=== PATIENT | female | born 1985 | race Caucasian/White ===

== ENCOUNTER 2021-12-07 13:02 | Outpatient (CLI) | payer BC, SELFPAY ==
[2021-12-07 14:20] LABS: Hemoglobin A1C 4.9 % (<5.7)
== END 2021-12-07 13:03 | disposition home or self-care (01) ==
PROVIDERS: PCP Family Medicine; Visit Provider Nurse Practitioner Family
DX: R63.1 Polydipsia (principal)
CPT/HCPCS: 36415; 83036

== ENCOUNTER 2023-08-27 16:42 | Outpatient (CLI) | payer BC, SELFPAY ==
--- NOTE | ~2023-08-27 | XR_ITS ---
XR_[id number] 08/27/2023 17:01 Indication: Neck pain Procedure: 3 views cervical spine Comparison: Cervical spine dated 05/13/2017 Findings: Vertebral body and disc heights are preserved. No fracture, subluxation or dislocation. No prevertebral soft tissue abnormality. Spinous processes are normal. No evidence for perched facet. Jasmina ng apices are normal. Odontoid process within normal limits. Impression: 1: No significant abnormality of the cervical spine. Reviewed, dictated and finalized at location A. Impression: 1: No significant abnormality of the cervical spine.
--- NOTE | ~2023-08-27 | XR_ITS ---
XR thoracic spine 2V 08/27/2023 17:01 Indication: Back pain Procedure: 3 views thoracic spine Comparison: 05/13/2017 Findings: There is mild levocurvature of the thoracic spine centered at T8-9. No paraspinal soft tiss ue abnormality. Pedicles intact. The upper thoracic spine is visualized on the cervical spine series dated 08/27/2023. No acute fracture, subluxation or dislocation. Surrounding osseous structures are un remarkable. Impression: 1: Mild levoscoliosis of the thoracic spine. Reviewed, dictated and finalized at location A. Impression: 1: Mild levoscoliosis of the thoracic spine.
== END 2023-08-27 16:43 | disposition home or self-care (01) ==
LOC: ANHIMG 16:44
PROVIDERS: PCP Family Medicine; Visit Provider Physician Assistant Medical
DX: M54.2 Cervicalgia (principal); M54.6 Pain in thoracic spine
CPT/HCPCS: 72040; 72070

== ENCOUNTER 2023-09-04 13:44 | Outpatient (CLI) | payer BC, SELFPAY ==
--- NOTE | 2023-09-04 13:47 | ECHO_ITS ---
Patient Info Name: Allyson Pinon Age: 38 years : 1985 Gender: Female Ht: 62 in Wt: 125 lbs BSA: 1.58 m2 HR: 95 bpm BP: 107 / 77 mmHg Heart Rhythm: Sinus Rhythm Technical Quality: Good Exam Date: 09/04/2023 2:04 PM Exam Location: Echo Lab Patient Status: Outpatient Admit Date: 09/04/2023 Staff Ordering Physician: Fina Lock PAC Building Rental Superintendent: Navdeep Kramer RDCS Attending Provider: Fina Lock PAC Referring Physician: Hayde CARLOS; Exam Type: CA echo doppler color flow Study Info Indications - sob, edema, papatation Complete two-dimensional, color flow and Doppler transthoracic echocardiogram is performed. Summary 1. Complete two-dimensional, color flow and Doppler transthoracic echocardiogram is performed. 2. Left ventricular chamber dimension is normal. 3. Left ventricular systolic function is normal, estimated at 65-70%. 4. The left ventricular diastolic function is grade I diastolic dysfunction. 5. E/e' 6 is not elevated. 6. No pulmonary hypertension, estimated pulmonary arterial systolic pressure is 24 mmHg. Left Ventricle E/e' 6 is not elevated. Left ventricular chamber dimension is normal. Left ventricular systolic function is normal, estimated at 65-70%. The left ventricular diastolic function is grade I diastolic dysfunction. Right Ventricle Right ventricular systolic function is normal and with normal TAPSE 2.2 cm. Right ventricular chamber dimension is normal. Left Atria Left atrial chamber dimension is normal. Right Atria Right atrial chamber dimension is normal. Aortic Valve The aortic valve is trileaflet. There is no aortic valve stenosis. There is no aortic valve regurgitation. Pulmonic Valve There is no pulmonic regurgitation. Mitral Valve There is no mitral valve stenosis. There is no mitral valve regurgitation. Tricuspid Valve There is no tricuspid valve regurgitation. No pulmonary hypertension, estimated pulmonary arterial systolic pressure is 24 mmHg. Pericardium/Pleural There is no pericardial effusion. Inferior Vena Cava Normal inferior vena cava with >50% collapse upon inspiration consistent with normal right atrial pressure, 5 mmHg. Aorta The aortic root size at the sinus of Valsalva is normal. Left Ventricular Outflow Tract Name Value Normal LVOT 2D LVOT Diameter 2.0 cm LVOT Doppler LVOT Peak Gradient 3 mmHg LVOT Mean Gradient 2 mmHg LVOT VTI 21 cm LVOT VTI/AV VTI Ratio 0.9 LVOT Stroke Volume 65 ml LVOT CO 5.5 l/min LVOT CI 3.5 l/min/m2 Pulmonic Valve Name Value Normal RVOT Doppler RVOT Peak Gradient 2 mmHg PV Doppler PV Peak Gradient 3 mm
--- NOTE | 2023-09-08 16:22 | WPDHOLTEREM ---
Holter/Event Monitor Holter/Event Monitor Date of procedure: 09/04/23 Holter/Event Procedure: 48 Hr Holter Monitor Indications: Shortness of breath Conclusion: 1. 48 hour holter monitor on 09/04/23. 2. Underlying rhythm is sinus rhythm. HR range 53-160 bpm; average HR 90 bpm. HR at 160 bpm as at 16:56. 3. There are 23 premature supraventricular complexes and 1 supraventricular couplet. No supraventricular tachycardia. 4. There are 11 premature ventricular complexes and 3 ventricular trigeminy. No ventricular tachycardia. 5. No sinoatrial or atrioventricular blocks. No significant pauses greater than 2 seconds. 6. Patient reports symptoms of chest pain which demonstrate sinus rhythm, HR range 94-98 bpm.
== END 2023-09-04 13:45 | disposition home or self-care (01) ==
LOC: ANHCARD 13:45
PROVIDERS: PCP Family Medicine; Visit Provider Physician Assistant Medical
DX: R79.89 Other specified abnormal findings of blood chemistry (principal); R60.9 Edema, unspecified; R00.2 Palpitations; R06.02 Shortness of breath
CPT/HCPCS: 93225; 93226; 93306

== ENCOUNTER 2023-09-29 10:05 | Outpatient (CLI) | payer BC, SELFPAY ==
--- NOTE | ~2023-09-29 | US_ITS ---
EXAMINATION: US arterial ankle brachial ind DATE: 09/29/2023 10:48 INDICATION: Other specified symptoms and signs involving the circulatory system. TECHNIQUE: Segmental pressures and plethysmographic and Doppler waveforms of the brachial and lower e xtremity arteries were obtained. COMPARISON: None. FINDINGS: Right and left brachial artery pressures of 103 mm Hg and 101 mm Hg, respectively, are concordant (no rmal difference <= 30 mmHg). The right ankle-brachial index (LILLIE) is 1.13 (normal >= 0.9-1.0). The right great toe-brachial index (TBI) is 0.80 (normal >= 0.65). Arterial Doppler waveforms are biphasic at the ankle. The left LILLIE is 1.22. The left TBI is 0.73. Arterial Doppler waveforms are biphasic at the ankle. IMPRESSION: 1. No significant arterial occlusive disease. Reviewed, dictated and finalized at location A.
== END 2023-09-29 10:06 | disposition home or self-care (01) ==
PROVIDERS: PCP Family Medicine; Visit Provider Physician Assistant Medical
DX: R09.89 Other specified symptoms and signs involving the circulatory and respiratory systems (principal); L81.9 Disorder of pigmentation, unspecified; R60.9 Edema, unspecified
CPT/HCPCS: 93922

== ENCOUNTER 2025-03-07 14:28 | Outpatient (CLI) | payer BC, SELFPAY ==
--- NOTE | ~2025-03-07 | US_ITS ---
US soft tissue LE 03/07/2025 14:47 Indication: Palpable lump superior to the left heel. History of prior Achilles tendon injury. Procedure: Soft tissue ultrasound of the left heel in the area palpable concern Comparison: No prior studies for comparison. Findings: At the site of palpable concern, there is an irregular hypoechoic mass contiguous with the distal Achilles tendon measuring 10 x 5 x 3 mm. The lesion appears inseparable from tendon fibers demonstrates no cystic component or internal calcification. No abnormal hyperemia. Surrounding soft tissues are otherwise unremarkable. Impression: 1: Small hypoechoic irregular shaped mass measuring 10 x 5 x 3 mm contiguous with the distal Achilles tendon, likely related to chronic tendon pathology. Differential diagnosis includes focal tendinous scarring or fibrosis from prior tendon injury, chronic partial-thickness tear with organizing granulation or fibrotic tissue, nodular tendinosis, fibroma of the tendon sheath or giant cell tumor of the tendon sheath and tendinous xanthoma. Recommend correlation with MRI of the ankle for further characterization and evaluate chronic partial tear, tendinopathy or nodular lesion.. Reviewed, dictated and finalized at location O. Impression: 1: Small hypoechoic irregular shaped mass measuring 10 x 5 x 3 mm contiguous wi th the distal Achilles tendon, likely related to chronic tendon pathology. Diff erential diagnosis includes focal tendinous scarring or fibrosis from prior ten don injury, chronic partial-thickness tear with organizing granulation or fibro tic tissue, nodular tendinosis, fibroma of the tendon sheath or giant cell tumo r of the tendon sheath and tendinous xanthoma. Recommend correlation with MRI o f the ankle for further characterization and evaluate chronic partial tear, ten dinopathy or nodular lesion..
== END 2025-03-07 14:29 | disposition home or self-care (01) ==
PROVIDERS: PCP Family Medicine; Visit Provider Physician Assistant Medical
DX: M79.89 Other specified soft tissue disorders (principal); R22.42 Localized swelling, mass and lump, left lower limb
CPT/HCPCS: 76882